=== PATIENT | male | born 1985 | race African-American/Black ===

== ENCOUNTER → 2020-06-07 | Outpatient (CLI) | payer BC, OTHER | LOC: HEART CORB 09:50 | DX: R55 Syncope and collapse (principal); R00.0 Tachycardia, unspecified ==

== ENCOUNTER → 2020-06-21 | Outpatient (CLI) | payer BC, OTHER | LOC: HEART CORB 12:50 | DX: R07.2 Precordial pain (principal); R05 Cough; R06.02 Shortness of breath; R55 Syncope and collapse; I07.1 Rheumatic tricuspid insufficiency | CPT/HCPCS: 93306 ==